=== PATIENT | female | born 1960 | race Caucasian/White ===

== ENCOUNTER → 2023-09-10 15:00 | Outpatient (REF) | payer OTHER, SELFPAY | LOC: HWRAD 15:00 | PROVIDERS: ATTENDING PHYSICIAN Nurse Practitioner Adult Health | DX: G89.29 Other chronic pain (principal); M54.50 Low back pain, unspecified; R10.31 Right lower quadrant pain; Z91.81 History of falling | CPT/HCPCS: 72110; 73502 ==

== ENCOUNTER → 2024-05-31 08:16 | Outpatient (REF) | payer OTHER, SELFPAY | LOC: MRI 3T 08:16 | PROVIDERS: ATTENDING PHYSICIAN Nurse Practitioner Adult Health; FAMILY PHYSICIAN Internal Medicine | DX: R10.31 Right lower quadrant pain (principal); M16.11 Unilateral primary osteoarthritis, right hip; S76.211A Strain of adductor muscle, fascia and tendon of right thigh, initial encounter | CPT/HCPCS: 73721 ==